=== PATIENT | male | born 1965 ===

== ENCOUNTER 2024-02-16 09:32 | Emergency (ER) | payer SELFPAY ==
[~2024-02-16] VITALS: Ht 170.2 cm; Wt 78.2 kg
[2024-02-16 09:32] VITALS: BP 146/86; TEMP 97.8; O2SAT 99
[2024-02-16] MEDS ORDERED: SERO1TAB PO (09:39)
== END 2024-02-16 11:18 | disposition left against medical advice (07) ==
LOC: M ED 09:32
DX: Z53.21 Procedure and treatment not carried out due to patient leaving prior to being seen by health care provider (principal)

== ENCOUNTER → 2024-03-13 | Outpatient (REF) | payer SELFPAY ==
[~2024-03-13] MED LIST: SERO1TAB PO
[2024-03-13 17:18] LABS: HEMOGLOBIN A1c 5.4 % (4.0-6.0)
[2024-03-13 17:24] LABS: ALKALINE PHOSPHATASE 76 U/L (46-116); ALT/SGPT 15 U/L (7.0-40); AST/SGOT 11 U/L (<34); BILIRUBIN,TOTAL 0.2 MG/DL (0.3-1.2); BLOOD UREA NITROGEN 16 MG/DL (9-23); CALCIUM LEVEL 9.7 MG/DL (8.3-10.6); CARBON DIOXIDE LEVEL 23 MMOL/L (20-31); CHLORIDE LEVEL 106 MMOL/L (98-107); CHOLESTEROL LEVEL 171 MG/DL (<200); CHOLESTEROL RISK RATIO 3.27 (<5); CREATININE FOR GFR 1.05 MG/DL (0.70-1.30); GLOMERULAR FILTRATION RATE > 60.0 (>49); GLUCOSE, FASTING 78 MG/DL (74-106); HDL CHOLESTEROL 52.2 MG/DL (>40); LDL CHOLESTEROL 79.2 MG/DL (<100); NON-HDL-C 118.8 MG/DL; PROSTATIC SPECIFIC AG MONITOR 3.57 NG/ML (< 4.00); SODIUM LEVEL 137 MMOL/L (136-145); TRIGLYCERIDES LEVEL 198 MG/DL (<150)
[2024-03-13 17:26] LABS: THYROID STIMULATING HORMONE 2.268 uIU/ML (0.55-4.78); TOTAL 25(OH) VITAMIN D 20.6 NG/ML (20.0-100.0)
== END ==
LOC: M LAB REF 16:26
PROVIDERS: ATTEND Physician Assistant
DX: Z11.9 Encounter for screening for infectious and parasitic diseases, unspecified (principal); E66.9 Obesity, unspecified; E55.9 Vitamin D deficiency, unspecified; Z12.5 Encounter for screening for malignant neoplasm of prostate